=== PATIENT | male | born 1990 | race Hispanic/Latino ===

== ENCOUNTER 2017-04-30 18:43 | Emergency (ER) | payer SELFPAY ==
[2017-04-30 20:35] VITALS: BP 120/85
== END 2017-04-30 20:35 | disposition home or self-care (01) | DRG 605 ==
LOC: ED 18:43
PROC: 0HQLXZZ Repair Left Lower Leg Skin, External Approach (ICD-10-PCS; principal; 2017-04-30)
DX: S81.812A Laceration without foreign body, left lower leg, initial encounter (principal); Y04.0XXA Assault by unarmed brawl or fight, initial encounter; Y93.89 Activity, other specified; Y92.481 Parking lot as the place of occurrence of the external cause